=== PATIENT | female | born 1960 | race Caucasian/White ===

== ENCOUNTER 2025-01-22 15:57 | Inpatient (IN) ==
[2025-01-22 16:40] LABS: Basophils # (auto) 0.03 K/uL (0.00-0.20); Basophils % (auto) 0.4 %; Eosinophils # (auto) 0.27 K/uL (0.00-0.50); Hemoglobin 13.7 g/dl (12.0-16.0); Immature Granulocytes # (auto) 0.01 K/uL (0.01-0.20); Immature Granulocytes % (auto) 0.1 %; Lymphocytes # (auto) 1.86 K/uL (1.20-3.40); Lymphocytes % (auto) 27.8 %; Mean Corpuscular Hemoglobin 32.8 pg (25.0-34.0); Mean Corpuscular Hgb Conc 33.4 g/dL (32.0-36.0); Mean Corpuscular Volume 98.1 fL (80.0-100.0); Mean Platelet Volume 11.5 fL (9.4-12.4); Monocytes # (auto) 0.44 K/uL (0.11-0.59); Monocytes % (auto) 6.6 %; Neutrophils # (auto) 4.08 K/uL (1.40-6.50); Neutrophils % (auto) 61.1 %; Platelet Count 231 K/uL (130-400); RDW Coefficient of Variation 12.2 % (11.5-14.5); RDW Standard Deviation 44.7 fL (36.4-46.3); Red Blood Count 4.18 M/uL (4.20-5.40); White Blood Count 6.69 K/ul (4.8-10.8)
[2025-01-22 17:00] LABS: Albumin Globulin Ratio 1.8 (0.9-2); Albumin Level 4.7 gm/dl (3.4-5.0); BUN Creatinine Ratio 17.5 (10-20); Bilirubin,Total 0.3 mg/dl (0.2-1.0); Calcium 9.4 mg/dl (8.6-10.3); Creatinine Clr Calc Pharmacy 49.1 ml/min; Globulin 2.6 gm/dl (2.5-4.0); Magnesium 2.1 mg/dl (1.7-2.4); Potassium 4.3 mmol/L (3.5-5.1); Total Protein 7.3 gm/dl (6.0-8.3)
[2025-01-22] MEDS: SODIUM CHLORIDE 0.9% 1,000 ML IV ONE (17:00)
[2025-01-22 17:04] LABS: Prothrombin Time 10.7 Seconds (9.0-12.0)
[2025-01-22 17:05] LABS: Troponin I High Sensitivity 3.1 pg/ml (0-14)
[2025-01-22 17:15] LABS: Thyroid Stimulating Hormone 2.276 uIu/ml (0.300-4.500)
--- NOTE | 2025-01-22 17:15 | XRay Report ---
EXAM: Portable AP chest radiograph TECHNIQUE: AP portable radiograph of the chest was obtained. INDICATION: Shortness of breath Comparison: None FINDINGS: LINES and TUBES: There is a left-sided cardiac ICD with lead projecting over the right ventricle of the heart CARDIOVASCULAR: Cardiac silhouette is enlarged in size. LUNGS/PLEURA: Mild pulmonary vascular congestion. No focal consolidation identified. No significant pleural fluid. No discernible pneumothorax. OSSEOUS/OTHER: No displaced acute osseous process identified. ACDF hardware. Advanced osteoarthritis over the glenohumeral and the acromioclavicular joints. IMPRESSION: Mild congestive changes of the cardiovascular system. Electronically signed by Derian Rinaldi 01-22-2025 5:11 PM
--- NOTE | 2025-01-22 17:50 | Emergency Department Note ---
Impression & Plan Symptomatic bradycardia, Ventricular tachycardia, Lightheadedness ED Provider Note HISTORY OF PRESENT ILLNESS: Patient is a 64-year-old female presenting with lightheadedness and dizziness bradycardia. Patient reports that yesterday she had episodes of feeling lightheaded and dizzy like she was going to pass out. She states that today her symptoms recurred multiple times and she went to the nurses station at [facility] and was found to be bradycardic with a heart rate in the 30s. Patient reports that she has episode in which she feels like her vision gets very white and she is going to pass out. She states she has a history of bradycardia but is never been as low as the 30s. Denies any chest pain or shortness of breath. She reports she has a defibrillator in place because she had a history of Takotsubo's cardiomyopathy. She denies any nausea or vomiting. ROS: as above PHYSICAL EXAM: Constitutional: Patient appears in no acute distress. HENT: Head: Normocephalic and atraumatic. Eyes: EOMI, PERRL Mouth/Throat: Mucous membranes moist. Neck: Trachea midline. Neck supple. Cardiovascular: RRR, No murmurs, rubs or gallops. Intact distal pulses. Pulmonary/Chest: No respiratory distress. Breath sounds clear and equal bilaterally. No wheezes or rales. Abdominal: Abdomen soft, no tenderness, rebound or guarding. Musculoskeletal: No edema, tenderness or deformity noted. Skin: Warm and dry. No rash, erythema, pallor or cyanosis Psychiatric: Appropriate mood and affect for situation. Neurological: Alert and keenly responsive. CN II-XII grossly intact, moving all extremities equally and fully. MDM: - Vitals signs showed bradycardia - History obtained via patient. History as above. - Chronic conditions affecting care: Takotsubo's cardiomyopathy - Differential diagnoses include, but are not limited to: Electrolyte abnormality; dysrhythmia; ACS; CHF exacerbation; PE; aortic dissection - Order placed for continuous cardiac monitoring. At this time, monitor showed rate of 72 bpm with normal sinus rhythm, per my interpretation. - External medical records reviewed. - EKG image interpreted by myself showed normal sinus rhythm. Rate 69 bpm. QT 436. Noted to have significantly frequent PVCs and bigeminy. - Laboratory workup interpreted by myself showed normal WBC; normal PT/INR; stable electrolytes; normal troponin; elevated creatinine (Cr 1.54 - unknown baseline); normal TSH; normal lipase - CXR image reviewed by myself is negative for pneumonia, per my interpretation. Radiology notes "mild congestive changes." - Patient is noted to have frequent PVCs on both EKG and on the monitor. Patient while in the emergency department and being monitor on telemetry had multiple short runs of V. tach. She had an episode of V. tach while I was in the room with her and she became symptomatic stating that she felt lightheaded like she was going to pass out, similar to the symptoms she was having throughout the day today. Pads were placed on the patient and the crash cart was brought to her room. - Discussed case with [facility] city councilman on-call, Dr. Quiñonez, at 19:00. I sent him a picture of the patient's telemetry strip pictured below. He recommended giving an IV bolus of amiodarone for the patient's symptomatic V. tach. Also recommended initiation of amiodarone drip. - Amiodarone 150 mg IV bolus and drip ordered. Patient given 1L NS. - Discussion was had with binder caser about patient's case and need for admission - Hospitalist consulted for admission management. - [facility] I have personally spent 62 minutes of critical care time in the direct management of this patient. This includes bedside care, interpretation of diagnostic studies, and testing, discussion with consultants, patient, and family members, and other required patient management activities. This 62 minutes is in excess of all separately billable procedures. ASSESSMENT AND PLAN: Diagnosis: Symptomatic bradycardia; ventricular tachycardia; lightheadedness Plan: Admit Past Med/Surg History Problem List (Updated 01/22/25 @ 19:16 by Elaina Padron MD) Lightheadedness (Acute) Ventricular tachycardia (Acute) Symptomatic bradycardia (Acute) Social History Smoking Status: Current every day smoker Tobacco Type: Cigarettes Preferred Language: Spanish Feels Safe at Home: Yes Results & Data (ED) Vital Signs Vital Signs - 24 hr 01/22/25 16:03 01/22/25 16:19 01/22/25 16:19 Temperature 36.1 C L Temperature Source Temporal Artery Scan Pulse Rate 49 L 70 Pulse Rate [Apical] 70 Respiratory Rate 17 18 18 Respiratory Effort / Characteristics Non-Labored Spontaneous Non-Labored Spontaneous Respiratory Depth Normal Blood Pressure 119/68 Blood Pressure [Right Arm] 124/62 Blood Pressure Mean 85 Blood Pressure Mean [Right Arm] 82 Blood Pressure Position Sitting Blood Pressure Position [Right Arm] Lying Pulse Oximetry 98 96 96 Oxygen Delivery Method Room Air Room Air Room Air Sepsis Recent Fever Within 48 Hours No Sepsis New/Unexplained Change in Mental Status N/A Sepsis Action Taken by Nursing No Action Required 01/22/25 16:23 01/22/25 18:00 Temperature Temperature Source Pulse Rate 71 Pulse Rate [Apical] 72 Respiratory Rate 18 Respiratory Effort / Characteristics Non-Labored Spontaneous Respiratory Depth Blood Pressure Blood Pressure [Right Arm] 112/56 L Blood Pressure Mean Blood Pressure Mean [Right Arm] 74 Blood Pressure Position Blood Pressure Position [Right Arm] Lying Pulse Oximetry 97 Oxygen Delivery Method Room Air Sepsis Recent Fever Within 48 Hours Sepsis New/Unexplained Change in Mental Status Sepsis Action Taken by Nursing Laboratory Data 01/22/25 16:24 01/22/25 16:24 Lab Results 01/22/25 01/22/25 Range/Units 16:24 18:06 WBC 6.69 (4.8-10.8) K/ul RBC 4.18 L (4.20-5.40) M/uL Hgb 13.7 (12.0-16.0) g/dl Hct 41.0 (37.0-47.0) % MCV 98.1 (80.0-100.0) fL MCH 32.8 (25.0-34.0) pg MCHC 33.4 (32.0-36.0) g/dL RDW Std Deviation 44.7 (36.4-46.3) fL RDW Coeff of Obdulia 12.2 (11.5-14.5) % Plt Count 231 (130-400) K/uL MPV 11.5 (9.4-12.4) fL Immature Gran % (Auto) 0.1 % Neut % (Auto) 61.1 % Lymph % (Auto) 27.8 % [place] % (Auto) 6.6 % Eos % (Auto) 4.0 % Baso % (Auto) 0.4 % Neut # (Auto) 4.08 (1.40-6.50) K/uL Lymph # (Auto) 1.86 (1.20-3.40) K/uL [place] # (Auto) 0.44 (0.11-0.59) K/uL Eos # (Auto) 0.27 (0.00-0.50) K/uL Baso # (Auto) 0.03 (0.00-0.20) K/uL Immature Gran # (Auto) 0.01 (0.01-0.20) K/uL PT 10.7 (9.0-12.0) Seconds INR 1.0 (0.9-1.1) Sodium 136 (136-145) mmol/L Potassium 4.3 (3.5-5.1) mmol/L Chloride 101 (98-107) mmol/L Carbon Dioxide 30 (21-32) mmol/L Anion Gap 5 (3-11) BUN 27 H (6-23) mg/dl Creatinine 1.54 H (0.6-1.2) mg/dl Est Cr Clr Drug Dosing 49.1 ml/min eGFR 37.94 BUN/Creatinine Ratio 17.5 (10-20) Glucose 92 (70-99(Fasting)) mg/dl Calcium 9.4 (8.6-10.3) mg/dl Magnesium 2.1 (1.7-2.4) mg/dl Total Bilirubin 0.3 (0.2-1.0) mg/dl AST 34 (13-39) U/L ALT 26 (7-52) U/L Alkaline Phosphatase 75 (34-104) U/L Troponin I High Sens 3.1 (0-14) pg/ml Total Protein 7.3 (6.0-8.3) gm/dl Albumin 4.7 (3.4-5.0) gm/dl Globulin 2.6 (2.5-4.0) gm/dl Albumin/Globulin Ratio 1.8 (0.9-2) Lipase 44 (11-82) U/L TSH 2.276 (0.300-4.500) uIu/ml Urine Color Yellow Urine Appearance Clear (Clear) Urine pH 6.5 (4.5-7.5) Ur Specific [place] 1.013 (1.000-1.030) Urine Protein Negative (Negative) Urine Glucose (UA) 3+ H (Negative) Urine Ketones Negative (Negative) Urine Blood Negative (Negative) Urine Nitrite Negative (Negative) Urine Bilirubin Negative (Negative) Urine Urobilinogen Negative (Negative) Ur Leukocyte Esterase Negative (Negative) Administered Medications Discontinued Medications Sodium Chloride (Nss) 1,000 mls @ 999 mls/hr IV .Q1H1M ONE Stop: 01/22/25 18:20 Last Infusion: 01/22/25 18:01 Dose: Infused Documented By: Admin: 01/22/25 17:00 Dose: 999 mls/hr Documented By: AARTI Amiodarone HCl/Dextrose (Nexterone / D5w) 150 mg in 100 mls @ 600 mls/hr IV NOW STA Stop: 01/22/25 19:17 Last Admin: 01/22/25 19:15 Dose: 600 mls/hr Documented By: AARTI Co-signed By: [employer] Radiologist's Impression: Chest X-Ray 01/22/25 16:13 EXAM: Portable AP chest radiograph TECHNIQUE: AP portable radiograph of the chest was obtained. INDICATION: Shortness of breath Comparison: None FINDINGS: LINES and TUBES: There is a left-sided cardiac ICD with lead projecting over the right ventricle of the heart CARDIOVASCULAR: Cardiac silhouette is enlarged in size. LUNGS/PLEURA: Mild pulmonary vascular congestion. No focal consolidation identified. No significant pleural fluid. No discernible pneumothorax. OSSEOUS/OTHER: No displaced acute osseous process identified. ACDF hardware. Advanced osteoarthritis over the glenohumeral and the acromioclavicular joints. IMPRESSION: Mild congestive changes of the cardiovascular system. Electronically signed by Derian Rinaldi 01-22-2025 5:11 PM Discharge Plan Visit Data Chief Complaint: Abnormal Labs/Diagnostic Testing Stated Complaint: EKG ED Provider: Elaina Padron Discharge Problem: Symptomatic bradycardia, Ventricular tachycardia, Lightheadedness Forms Stand Alone Forms: [facility] Referrals Referrals: Sravanthi Beck PA-C [Primary Care Provider] -
[2025-01-22] MEDS ORDERED: 0.2 MICRON FILTER SET 1 EACH IV ONE ×2 (19:08→22:00)
[2025-01-22 19:09] LABS: Appearance Urine Clear (Clear); Bilirubin Urine Negative (Negative); Blood Urine Negative (Negative); Color Urine Yellow; Glucose Urine UA 3+ (Negative); Ketones Urine Negative (Negative); Leukocyte Esterase Urine Negative (Negative); Nitrite Urine Negative (Negative); Protein Urine Negative (Negative); Specific Gravity Urine 1.013 (1.000-1.030); Urobilinogen Urine Negative (Negative); pH Urine 6.5 (4.5-7.5)
[2025-01-22] MEDS: AMIODARONE / D5W 150 MG/100 ML BAG IV STA ×2 (19:15→23:13)
--- NOTE | 2025-01-22 19:25 | History & Physical Report ---
Date of Service January 22, 2025 Assessment & Plan (1) Ventricular tachycardia: (2) Symptomatic bradycardia: (3) Acute kidney injury: Plan Patient is a 64-year-old female with past medical history of Takotsubo cardiomyopathy with a defibrillator. She presented to the ER from [facility] for bradycardia (HR in 30s) and was found to have multiple episodes of V. tach in which patient is symptomatic with lightheadedness dizziness and feels presyncopal. She is being admitted to the PCU on amiodarone drip. #Ventricular tachycardia hx takotsubo cardiomyopathy with defibrillator in place - baseline BP in 40s CXR shows mild congestive changes electrolytes stable, TSH WNL, troponin 3.1 given 150 mg IV amiodarone load in ED continue amiodarone drip - will order additional bolus throughout the night if breakthrough v tach echocardiogram ordered cardiology consulted continuous telemetry monitoring hold carvedilol and metoprolol to allow for better parameters with drip above #CHITO questionable as baseline function unknown, pt denies hx of CKD patient stated history of renal lesion that she has yet to arrange follow up for as has been in detox facility Cr 1.54, BUN 27 UA negative hold Lasix, spironolactone, Farxiga, Entresto given 1L NSS bolus in ED, continue IVF resuscitation with LR at 80ml/hr #recent illness patient stated sore throat x 1 week treated with azithromycin at facility CXR shows congestive changes covid/flu/rsv test ordered #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 HLD - continue statin, tricor, ASA, and cilostazol chronic pain - continue gabapentin anxiety - hydroxyzine prn GERD - continue PPI tobacco use - continue varenicline if able to dose with pharmacy [facility] - patient does not use cpap, set up for sleep study in out pt setting COPD - patient notes hx of, unsure of inhalers and no history of in our records VTE ppx: SCDs Diet: Heart healthy Dispo: PCU on amiodarone drip Most recent office visit with Dr. Wilder faxed over from 09/03/2024. Appears patient was previously transition from Coreg to Toprol XL 12.5 Mg daily at this time and started Pletal 50 Mg twice daily. Patient has a history of arthritis, CAD, hypertension, hyperlipidemia, cardiomyopathy, MR, PAD, chronic systolic heart failure, carotid stenosis. Admission and Anticipated Discharge Date Admission Date: 01/22/25 History of Present Illness Chief Complaint: Abnormal labs Primary Care Provider: Sravanthi Beck PA-C Patient is a 64-year-old female with past medical history of Takotsubo cardiomyopathy with a defibrillator. She presented to the ER from [facility] for bradycardia and was found to have multiple episodes of V. tach in which patient is symptomatic with lightheadedness dizziness and feels presyncopal. She is being admitted to the PCU on amiodarone drip. Patient seen bedside. She stated she is at [facility] for alcohol detoxification and pain medication detoxification. She has been there for approximately 30 days and has been sober. She also has decreased her nicotine use to 2 cigarettes/day. She stated she is was a chronic alcohol user to help with her chronic pain which is now resolved with stopping both drinking and pain medication. She started drinking alcohol after her first her child . She is mentally doing a lot better and plans to return home after this admission. Patient stated that yesterday she became lightheaded while walking uphill [place] took a nap and it went away. This morning she also had lightheadedness, nausea, and dizziness with walking along with leg weakness. Nursing found her heart rate to be in the 30s. She has a history of Takotsubo cardiomyopathy and has a defibrillator, she stated her baseline heart rate is usually in the 40s. She also had a headache in which she thought was a migraine so she took a nap. Upon waking up her heart rate was still in the 30s. They spoke with her advertising teacher who recommended she come to the ED. In the ED she had multiple runs of V. tach associated with lightheadedness and dizziness. She was given amiodarone bolus and started on amiodarone drip after her ER provider spoke with on-call advertising teacher, Dr. Quiñonez. At bedside, patient is feeling much better, transcutaneous pads in place. HR trending in 70s-80s however frequent PVCs. She denies any current dizziness or lightheadedness. Denies any chest pain, worsening shortness of breath (has dyspnea at baseline), recent vomiting or diarrhea. Patient stated she did have flulike symptoms last week which consisted of a sore throat, they prescribed her a Z-Leonardo which resolved her symptoms. As we have no medical records, patient denies past history of CKD, DM, previous VTE, current cancer. She stated she does have a history of COPD and uses a daily inhaler and use albuterol as needed. She also has a history of CHF and stated her ejection fraction has improved from 20% to 50% after starting Entresto and taking Lasix. secretary of police to try to obtain records from patient's advertising teacher, Dr. Wilder. As admission is Saturday evening, anticipate records to come in Saturday morning. Allergies Allergy/AdvReac Type Severity Reaction Status Date / Time diphenhydramine AdvReac Confusion Unverified 01/22/25 20:18 [From Benadryl Allergy] Home Medications Medication Instructions Recorded Confirmed Type aspirin 81 mg tablet,delayed 81 mg PO DAILY 01/22/25 01/22/25 History release atorvastatin 20 mg tablet 20 mg PO DAILY 01/22/25 01/22/25 History carvedilol 6.25 mg tablet 6.25 mg PO 2XD 01/22/25 01/22/25 History cilostazol 50 mg tablet 50 mg PO 2XD 01/22/25 01/22/25 History cyclobenzaprine 10 mg tablet 10 mg PO DAILY PRN Muscle Spasm 01/22/25 01/22/25 History dapagliflozin propanediol 10 mg 10 mg PO DAILY 01/22/25 01/22/25 History tablet (Farxiga) duloxetine 30 mg capsule,delayed 30 mg PO DAILY 01/22/25 01/22/25 History release duloxetine 60 mg capsule,delayed 60 mg PO DAILY 01/22/25 01/22/25 History release famotidine 20 mg tablet 20 mg PO 2XD 01/22/25 01/22/25 History fenofibrate nanocrystallized 145 145 mg PO DAILY 01/22/25 01/22/25 History mg tablet folic acid 1 mg tablet 1 mg PO DAILY 01/22/25 01/22/25 History gabapentin 300 mg capsule 300 mg PO 3XD 01/22/25 01/22/25 History hydroxyzine pamoate 25 mg capsule 25 mg PO 3XD PRN Anxiety 01/22/25 01/22/25 History metoprolol succinate 25 mg 12.5 mg PO DAILY 01/22/25 01/22/25 History tablet,extended release 24 hr pantoprazole 40 mg tablet,delayed 40 mg PO DAILY 01/22/25 01/22/25 History release sacubitril 49 mg-valsartan 51 mg 1 tab PO 2XD 01/22/25 01/22/25 History tablet (Entresto) spironolactone 25 mg tablet 25 mg PO DAILY 01/22/25 01/22/25 History trazodone 50 mg tablet 50 mg PO DAILY 01/22/25 01/22/25 History varenicline tartrate 0.5 mg (11)-1 1 ea PO DAILY 01/22/25 01/22/25 History mg (42) tablets in a dose pack Past Med/Surg History Problem List (Updated 01/22/25 @ 20:38 by Clauida Hermosillo PA-C) Acute kidney injury Lightheadedness (Acute) Ventricular tachycardia (Acute) Symptomatic bradycardia (Acute) Social History Smoking Status: Former smoker Tobacco Type: Cigarettes Hx Alcohol Use: Yes (hx but recently 30 days sober) Alcohol type: beer Hx Substance Use: Yes Substance Use Type Other:: sober 30 days Preferred Language: Uzbek Communication Ability: Effective Beliefs That Will Affect Care: None Current Living Situation: Spouse Feels Safe at Home: Yes Safety Concerns: Feels Safe At This Time Assistive Devices: Cane, Glasses and Walker Review of Systems Review of Systems: see HPI Physical Exam Physical Exam: The patient is awake, alert and oriented 3, well developed and well nourished, normocephalic and atraumatic, in no acute distress. Non-toxic appearing. HEENT- EOMI, mucous membranes moist. Hearing grossly intact. Heart-normal S1 and S2. No murmurs, rubs or gallops. Transcutaneous pads in place. Lungs-clear bilaterally, no respiratory distress, no accessory muscle use. Abdomen-normal bowel sounds and soft. No ascites noted. Non-tender. Extremities- no clubbing, cyanosis, or edema. Rheumatologic-normal range of motion. Psychiatric-normal affect. Results & Data Results & Data Vital Signs (Past 12 Hours) Vital Signs Temp Pulse Pulse Resp BP BP Pulse Ox 01/22/25 18:00 72 18 112/56 L 97 01/22/25 16:23 71 01/22/25 16:19 70 18 96 01/22/25 16:19 70 18 124/62 96 01/22/25 16:03 36.1 C L 49 L 17 119/68 98 O2 Del Method 01/22/25 18:00 Room Air 01/22/25 16:23 01/22/25 16:19 Room Air 01/22/25 16:19 Room Air 01/22/25 16:03 Room Air Laboratory Results Reviewed CBC, PT/INR, CMP, Pro-Marcial, UA, troponin, mag, tsh Diagnostic Findings reviewed cxr Medications Administered ed - amiodarone 150mg IV, started on amiodarone drip, 1L NSS bolus ECG Additional Comments: Sinus rhythm with first-degree AV block, frequent PVCs rate 69 QTc 467 Code Status & VTE Plan Code Status full code VTE Prophylaxis Plan VTE Prophylaxis will be ordered: Yes Supervising Physician Co-Signing Physician Notes Attending addendum: I have physically seen this patient, have supervised the NICKY's activities, and agree with the H&P unless as otherwise noted. Assessment and Plan: The patient is a 64-year-old female with past medical history including Takotsubo's cardiomyopathy, status post defibrillator placement. He presently is at [facility] undergoing rehab. Patient was noted to be bradycardic with heart rate in the 30s, and also has had episodes of ventricular tachycardia. In the emergency department, due to associated symptomatology of lightheadedness, dizziness and presyncope, she was started on amiodarone bolus and drip per protocol. She is referred for evaluation to and the hospitalist service for further treatment and for cardiology consultation. #Ventricular tachycardia- Continue amiodarone bolus/drip, did require additional 150 mg IV bolus, with maintained sinus tachycardia throughout the rest of the evening History of bradycardia, tachybradycardia syndrome Continue following full telemetry Complete echocardiogram in the a.m. Holding carvedilol and metoprolol at this time Renal insufficiency- Creatinine 1.5 for admission, with unknown baseline Holding her current regimen of Lasix, spironolactone, Farxiga and Entresto due to renal function and adequate blood pressure control at this time Repeat laboratories in a.m. Chronic alcohol use history- Presently a detox facility, reportedly 30 days sober Thiamine and folate to be continued Chronic stable conditions: Continue as per noted PG Care Time/CCT Total # of Minutes Spent Total Time Spent with Patient: Total time spent is greater than 50% in coordination of care (as documented) at patient's floor/unit and/or counseling patient: Coding Level of Care Code 21601 INT INP/OBS CARE 3/75MIN Diagnoses Ventricular tachycardia I47.20 Symptomatic bradycardia R00.1 Acute kidney injury N17.9
--- NOTE | 2025-01-22 19:25 | Electrocardiogram Report ---
Test Reason : Blood Pressure : */* mmHG Vent. Rate : 69 BPM Atrial Rate : 69 BPM P-R Int : 216 ms QRS Dur : 104 ms QT Int : 436 ms P-R-T Axes : 65 100 -79 degrees QTcB Int : 467 ms Sinus rhythm with 1st degree A-V block with frequent Premature ventricular complexes in a pattern of bigeminy Rightward axis Abnormal ECG No previous ECGs available Confirmed by Daniel Fierro ([id number]) on 01/22/2025 7:25:33 PM Referred By: Confirmed By: Daniel Fierro
[2025-01-22] MEDS ORDERED: 0.2 MICRON FILTER SET 1 EACH IV STA (19:32)
[2025-01-22] MEDS: STAT IV Infusion **Titration per Protocol STA (19:48)
[2025-01-22] MEDS: AMIODARONE IV BOLUS & DRIP IV STA (19:48)
[2025-01-22] MEDS: AMIODARONE / D5W 360 MG/200 ML BAG IV ONE (19:51)
[2025-01-22 21:19] LABS: Influenza A virus by PCR Negative (Neg); Influenza B virus by PCR Negative (Neg); RSV by PCR Negative (Neg); SARS CoV2 RNA(COVID-19) Ceph NEGATIVE (Negative)
[2025-01-22] MEDS ORDERED: hydrOXYzine HCl 25 MG TAB PO PRN (22:27)
[2025-01-22] MEDS ORDERED: DOCUSATE SODIUM 100 MG CAP PO PRN (22:27)
[2025-01-22] MEDS ORDERED: ONDANSETRON INJ 2 MG/ML 2 ML VIAL IV PRN (22:27)
[2025-01-22] MEDS: LACTATED RINGER'S 1,000 ML IV SCH (22:46)
[2025-01-22] MEDS: HEPARIN 25000 UNIT/500 ML D5W 25,000 UNITS/500 ML BAG IV SCH (22:50)
[2025-01-22] MEDS: Heparin IV Adult Wt-Based Standard *NO* INITIAL Bolus Protocol IV STA (22:54)
[2025-01-22] MEDS: GABAPENTIN 300 MG CAP PO SCH (23:34)
[2025-01-22] MEDS: traZODone HCL 50 MG TAB PO SCH (23:34)
[2025-01-22] MEDS: cilostazoL 100 MG TAB PO SCH (23:35)
[2025-01-22] MEDS: FAMOTIDINE 20 MG TAB PO SCH (23:38)
[2025-01-23] MEDS: AMIODARONE / D5W 360 MG/200 ML BAG IV SCH (01:54)
[2025-01-23 06:23] LABS: Basophils # (auto) 0.02 K/uL (0.00-0.20); Basophils % (auto) 0.3 %; Eosinophils % (auto) 6.1 %; Hematocrit (blood only) 39.4 % (37.0-47.0); Hemoglobin 13.1 g/dl (12.0-16.0); Immature Granulocytes # (auto) 0.01 K/uL (0.01-0.20); Immature Granulocytes % (auto) 0.2 %; Lymphocytes # (auto) 2.11 K/uL (1.20-3.40); Mean Corpuscular Hemoglobin 32.8 pg (25.0-34.0); Mean Corpuscular Hgb Conc 33.2 g/dL (32.0-36.0); Mean Corpuscular Volume 98.5 fL (80.0-100.0); Mean Platelet Volume 11.7 fL (9.4-12.4); Monocytes % (auto) 6.1 %; Neutrophils # (auto) 3.66 K/uL (1.40-6.50); Neutrophils % (auto) 55.3 %; Platelet Count 195 K/uL (130-400); RDW Coefficient of Variation 12.4 % (11.5-14.5)
[2025-01-23 06:48] LABS: Albumin Globulin Ratio 1.9 (0.9-2); Albumin Level 3.9 gm/dl (3.4-5.0); Bilirubin,Total 0.3 mg/dl (0.2-1.0); Creatinine Clr Calc Pharmacy 71.9 ml/min; Globulin 2.1 gm/dl (2.5-4.0); Magnesium 2.1 mg/dl (1.7-2.4); Potassium 3.9 mmol/L (3.5-5.1)
[2025-01-23 06:53] LABS: Troponin I High Sensitivity 3.2 pg/ml (0-14)
[2025-01-23 07:14] LABS: ANTI-Xa, UFH(UnfractionatedHep 0.31 IU/ml (0.3-0.7)
[2025-01-23] MEDS: DULoxetine HCL 30 MG CAP PO SCH (08:04)
[2025-01-23] MEDS: ASPIRIN 81 MG ECTAB PO SCH (08:05)
[2025-01-23] MEDS: PANTOprazole 40 MG TAB PO SCH (08:06)
[2025-01-23] MEDS: ATORVASTATIN 20 MG TAB PO SCH (08:07)
[2025-01-23] MEDS: FENOFIBRATE NANOCRYSTALLIZED 145 MG TABLET PO SCH (08:08)
[2025-01-23] MEDS ORDERED: traZODone HCL 50 MG TAB PO SCH (09:00)
--- NOTE | 2025-01-23 09:03 | Hospitalist Progress Note ---
Date of Service January 23, 2025 Assessment & Plan (1) Ventricular tachycardia: Plan: continue amiodarone drip echocardiogram ordered cardiology consulted continuous telemetry monitoring (2) Symptomatic bradycardia: Plan: hold carvedilol and metoprolol to allow for better parameters with drip (3) Acute kidney injury: Plan: questionable as baseline function unknown, pt denies hx of CKD patient stated history of renal lesion that she has yet to arrange follow up for as has been in detox facility Cr 1.54, BUN 27 UA negative hold Lasix, spironolactone, Farxiga, Entresto given 1L NSS bolus in ED, continue IVF resuscitation with LR at 80ml/hr -cr now 1.05 this am Plan Patient is a 64-year-old female with past medical history of Takotsubo cardiomyopathy with a defibrillator. She presented to the ER from [facility] for bradycardia (HR in 30s) and was found to have multiple episodes of V. tach in which patient is symptomatic with lightheadedness dizziness and feels presyncopal. She is being admitted to the PCU on amiodarone drip. Chronic stable diagnoses: CHF - holding Lasix, spironolactone, Entresto as above - patient reports EF of 50%, echocardiogram in a.m. HLD - continue statin, tricor, ASA, and cilostazol chronic pain - continue gabapentin anxiety - hydroxyzine prn GERD - continue PPI tobacco use - continue varenicline if able to dose with pharmacy [facility] - patient does not use cpap, set up for sleep study in out pt setting COPD - patient notes hx of, unsure of inhalers and no history of in our records VTE ppx: SCDs Diet: Heart healthy Dispo: PCU on amiodarone drip Most recent office visit with Dr. Wilder faxed over from 09/03/2024. Appears patient was previously transition from Coreg to Toprol XL 12.5 Mg daily at this time and started Pletal 50 Mg twice daily. Patient has a history of arthritis, CAD, hypertension, hyperlipidemia, cardiomyopathy, MR, PAD, chronic systolic heart failure, carotid stenosis. Admission and Anticipated Discharge Date Admission Date: January 22, 2025 Subjective No events overnight. Pt resting comfortably in bed. No chest pain or palpitations overnight. Review of Systems Review of Systems: CONST: Negative for fever, body aches and chills. HENT: Negative for neck pain/stiffness, headache, congestion, sore throat, swel ling. EYES: Negative for discharge/pain or vision changes. RESP: Negative for cough/hemoptysis and shortness of breath. CV: Negative chest pain, difficulty breathing, palpitations. ABD: Negative pain, nausea, vomiting. : Negative increase frequency, dysuria, blood in urine or stool. MUSC: Negative for muscle aches, edema. SKIN: Negative rash, lesions/sores. NEURO: Negative headache, dizziness, weakness. Physical Exam Physical Exam: GENERAL APPEARANCE NAD, activity normal for age, well developed/ well nourished, no cyanosis, pallor, or diaphoresis. EYES lids/conjunctiva normal. EARS/NOSE/THROAT Mucous membranes moist, nares normal, lips/teeth normal uvula midline without oral pharyngeal erythema, exudate or swelling TMs normal bilaterally. No lymphangitis/lymphedema. HEAD/NECK normocephalic atraumatic, no facial trauma, neck is supple. RESPIRATORY respiratory effort normal, speaks in full sentences, no tripod position, no accessory muscle use. Lungs clear to auscultation without rhonchi, wheezes, rales CARDIAC Regular rate and rhythm, no edema. ABDOMINAL Soft, ND/NT. No evidence of fluid wave. No pulsatile masses on exam, rebound tenderness, Deng sign or pain over Mcburney's point. MUSCLES/EXTREMITIES No abnormal range of motion, no swelling. SKIN Warm, pink and dry. No rashes, dermatoses, petechiae or lesions. NEUROLOGICAL Speech is clear and appropriate. Normal level of consciousness. Gait and coordination are normal. 5/5 strength in all extremities. PSYCH Normal mood and affect. Judgement/competence is appropriate Results & Data Results & Data Vital Signs (Past 12 Hours) Vital Signs Temp Pulse Pulse Resp BP BP Pulse Ox 01/23/25 08:03 36.6 C 76 14 110/51 L 94 01/23/25 04:12 36.5 C 76 17 107/57 L 96 01/22/25 22:27 01/22/25 22:15 36.5 C 68 18 133/56 L 97 01/22/25 21:51 78 01/22/25 21:47 65 18 132/66 94 Pulse Ox O2 Del Method O2 Del Method 01/23/25 08:03 Room Air 01/23/25 04:12 Room Air 01/22/25 22:27 97 Room Air 01/22/25 22:15 Room Air 01/22/25 21:51 01/22/25 21:47 Room Air PG Care Time/CCT Total # of Minutes Spent Total Time Spent with Patient: Total time spent is greater than 50% in coordination of care (as documented) at patient's floor/unit and/or counseling patient: Coding Level of Care Code 56774 SUB INP/OBS CARE 2/35MIN Diagnoses Ventricular tachycardia I47.20 Symptomatic bradycardia R00.1 Acute kidney injury N17.9
--- NOTE | 2025-01-23 09:47 | XCELERA ---
[id number]
--- NOTE | 2025-01-23 12:42 | Cardiology Consultation ---
Date of Consultation January 23, 2025 Assessment & Plan (1) Ventricular tachycardia: -Uncertain etiology. -Normal QTc interval on presentation. -Normal left ventricular systolic function on echocardiogram. -Has responded well to intravenous amiodarone. -Would continue intravenous amiodarone for another 24 hours, then convert to 200 Mg p.o. twice daily. -She will need to follow-up with her hatch tender in [place], [place]. -Anticipate hospital discharge tomorrow. (2) Takotsubo cardiomyopathy: -Normal ejection fraction on current echocardiogram. (3) ICD (implantable cardioverter-defibrillator), single, in situ: -[employer] device. History of Present Illness Attending Physician: Apollo Roberts MD History of Present Illness Mrs. Mcmahan is a 64-year-old female admitted yesterday with symptomatic, nonsustained ventricular tachycardia. This consultation was ordered to assist in her cardiac management. Of note, the patient typically follows with Dr. Wilder, a hatch tender in [place], [place]. The patient was in her usual state of health until the day of presentation. She began to experience intermittent episodes of lightheadedness, dizziness, and leg fatigue. She presented to the nurses station (currently a resident at [facility]) and was noted to have a heart rate in the 30s. Therefore, she was sent to the emergency room for further care. On arrival here, the patient was noted to be in ventricular bigeminy. She then had several episodes of symptomatic nonsustained ventricular tachycardia characterized by presyncope. I was contacted by telephone and we decided to start the patient on intravenous amiodarone. Fortunately, this has greatly reduced the ventricular tachycardia. The patient does carry a history of the Takotsubo cardiomyopathy that occurred after her foster child . She had an implantable defibrillator ([employer]) placed and was started on appropriate medical therapy. That was in the year 2020. The patient explains that her left ventricular ejection fraction improved from 20% up to 50% on her most recent echocardiogram. Currently, patient is resting comfortably in bed and without complaints. Allergies Allergy/AdvReac Type Severity Reaction Status Date / Time diphenhydramine AdvReac Confusion Unverified 01/22/25 20:18 [From Benadryl Allergy] Home Medications Medication Instructions Recorded Confirmed Type aspirin 81 mg tablet,delayed 81 mg PO DAILY 01/22/25 01/22/25 History release atorvastatin 20 mg tablet 20 mg PO DAILY 01/22/25 01/22/25 History carvedilol 6.25 mg tablet 6.25 mg PO 2XD 01/22/25 01/22/25 History cilostazol 50 mg tablet 50 mg PO 2XD 01/22/25 01/22/25 History cyclobenzaprine 10 mg tablet 10 mg PO DAILY PRN Muscle Spasm 01/22/25 01/22/25 History dapagliflozin propanediol 10 mg 10 mg PO DAILY 01/22/25 01/22/25 History tablet (Farxiga) duloxetine 30 mg capsule,delayed 30 mg PO DAILY 01/22/25 01/22/25 History release duloxetine 60 mg capsule,delayed 60 mg PO DAILY 01/22/25 01/22/25 History release famotidine 20 mg tablet 20 mg PO 2XD 01/22/25 01/22/25 History fenofibrate nanocrystallized 145 145 mg PO DAILY 01/22/25 01/22/25 History mg tablet folic acid 1 mg tablet 1 mg PO DAILY 01/22/25 01/22/25 History gabapentin 300 mg capsule 300 mg PO 3XD 01/22/25 01/22/25 History hydroxyzine pamoate 25 mg capsule 25 mg PO 3XD PRN Anxiety 01/22/25 01/22/25 History metoprolol succinate 25 mg 12.5 mg PO DAILY 01/22/25 01/22/25 History tablet,extended release 24 hr pantoprazole 40 mg tablet,delayed 40 mg PO DAILY 01/22/25 01/22/25 History release sacubitril 49 mg-valsartan 51 mg 1 tab PO 2XD 01/22/25 01/22/25 History tablet (Entresto) spironolactone 25 mg tablet 25 mg PO DAILY 01/22/25 01/22/25 History trazodone 50 mg tablet 50 mg PO DAILY 01/22/25 01/22/25 History varenicline tartrate 0.5 mg (11)-1 1 ea PO DAILY 01/22/25 01/22/25 History mg (42) tablets in a dose pack Patient History Social History Smoking Status: Former smoker Tobacco Type: Cigarettes 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 HEENT exam is negative. Neck is supple with full carotid upstrokes. There are no carotid bruits. Jugular venous pressure is flat at 90 degrees. There is no thyromegaly. Cardiovascular exam reveals a regular rhythm with distant heart sounds. No obvious murmurs. Lungs are clear without rales, rhonchi, or wheezes. Chest reveals a palpable device in the left subclavicular region. Abdomen is obese without bruits. Extremities reveal intact radial artery pulses bilaterally. There is no peripheral edema. Results & Data Vital Signs (Past 12 Hours) Vital Signs Temp Pulse Pulse Resp BP Pulse Ox O2 Del Method 01/23/25 10:06 36.5 C 77 14 123/71 98 Room Air 01/23/25 09:59 Room Air 01/23/25 08:03 36.6 C 76 14 110/51 L 94 Room Air 01/23/25 07:00 76 01/23/25 04:12 36.5 C 76 17 107/57 L 96 Room Air Laboratory Results CBC and electrolytes are unremarkable. Initial high-sensitivity troponin was 3.1 with a follow-up value of 3.2. Initial EKG notes sinus rhythm with PVCs and a pattern of bigeminy. Echocardiogram notes normal left ventricular systolic fu nction with an ejection fraction of 50 to 55%. There were no wall motion abnormalities. No valvular pathology. PG Care Time/CCT Total # of Minutes Spent Total Time Spent with Patient: Total time spent is greater than 50% in coordination of care (as documented) at patient's floor/unit and/or counseling patient: Coding Level of Care Code 56784 IN/OBS CONSULT LVL 4,60M Diagnoses Ventricular tachycardia I47.20 Takotsubo cardiomyopathy I51.81 ICD (implantable cardioverter-defibrillator), single, in situ Z95.810
[2025-01-23] MEDS: NALTREXONE HCL 50 MG TAB PO SCH (20:06)
[2025-01-24 04:17] VITALS: RESP 18
[2025-01-24 07:06] LABS: ANTI-Xa, UFH(UnfractionatedHep 0.28 IU/ml (0.3-0.7)
[2025-01-24 07:57] VITALS: BP 148/90; PULSE 55; TEMP 97.9; O2SAT 97
[2025-01-24] MEDS: ACETAMINOPHEN 325 MG TAB PO PRN (09:11)
--- NOTE | 2025-01-24 10:30 | Discharge Summary ---
Discharge Summary Date of Service January 24, 2025 Principal Dx & Hospital Course #1 = Principal Diagnosis (1) Ventricular tachycardia: continue amiodarone drip echocardiogram ordered cardiology consulted continuous telemetry monitoring Pt without further episodes, cardiology recommending d/c with po amiodarone. (2) Symptomatic bradycardia: hold carvedilol and metoprolol to allow for better parameters with drip (3) Acute kidney injury: questionable as baseline function unknown, pt denies hx of CKD patient stated history of renal lesion that she has yet to arrange follow up for as has been in detox facility Cr 1.54, BUN 27 UA negative hold Lasix, spironolactone, Farxiga, Entresto given 1L NSS bolus in ED, continue IVF resuscitation with LR at 80ml/hr -cr now 1.05 this am Plan Patient is a 64-year-old female with past medical history of Takotsubo cardiomyopathy with a defibrillator. She presented to the ER from [facility] for bradycardia (HR in 30s) and was found to have multiple episodes of V. tach in which patient is symptomatic with lightheadedness dizziness and feels presyncopal. She is being admitted to the PCU on amiodarone drip. Chronic stable diagnoses: CHF - holding Lasix, spironolactone, Entresto as above - patient reports EF of 50%, echocardiogram in a.m. HLD - continue statin, tricor, ASA, and cilostazol chronic pain - continue gabapentin anxiety - hydroxyzine prn GERD - continue PPI tobacco use - continue varenicline if able to dose with pharmacy [facility] - patient does not use cpap, set up for sleep study in out pt setting COPD - patient notes hx of, unsure of inhalers and no history of in our records VTE ppx: SCDs Diet: Heart healthy Dispo: PCU on amiodarone drip Most recent office visit with Dr. Wilder faxed over from 09/03/2024. Appears patient was previously transition from Coreg to Toprol XL 12.5 Mg daily at this time and started Pletal 50 Mg twice daily. Patient has a history of arthritis, CAD, hypertension, hyperlipidemia, cardiomyopathy, MR, PAD, chronic systolic heart failure, carotid stenosis. Admission HPI Per Admitting Provider Patient is a 64-year-old female with past medical history of Takotsubo cardiomyopathy with a defibrillator. She presented to the ER from [facility] for bradycardia and was found to have multiple episodes of V. tach in which patient is symptomatic with lightheadedness dizziness and feels presyncopal. She is being admitted to the PCU on amiodarone drip. Patient seen bedside. She stated she is at [facility] for alcohol detoxification and pain medication detoxification. She has been there for approximately 30 days and has been sober. She also has decreased her nicotine use to 2 cigarettes/day. She stated she is was a chronic alcohol user to help with her chronic pain which is now resolved with stopping both drinking and pain medication. She started drinking alcohol after her first her child . She is mentally doing a lot better and plans to return home after this admission. Patient stated that yesterday she became lightheaded while walking uphill however took a nap and it went away. This morning she also had lightheadedness, nausea, and dizziness with walking along with leg weakness. Nursing found her heart rate to be in the 30s. She has a history of Takotsubo cardiomyopathy and has a defibrillator, she stated her baseline heart rate is usually in the 40s. She also had a headache in which she thought was a migraine so she took a nap. Upon waking up her heart rate was still in the 30s. They spoke with her obstetrical tech who recommended she come to the ED. In the ED she had multiple runs of V. tach associated with lightheadedness and dizziness. She was given amiodarone bolus and started on amiodarone drip after her ER provider spoke with on-call obstetrical tech, Dr. Quiñonez. At bedside, patient is feeling much better, transcutaneous pads in place. HR trending in 70s-80s however frequent PVCs. She denies any current dizziness or lightheadedness. Denies any chest pain, worsening shortness of breath (has dyspnea at baseline), recent vomiting or diarrhea. Patient stated she did have flulike symptoms last week which consisted of a sore throat, they prescribed her a Z-Leonardo which resolved her symptoms. As we have no medical records, patient denies past history of CKD, DM, previous VTE, current cancer. She stated she does have a history of COPD and uses a daily inhaler and use albuterol as needed. She also has a history of CHF and stated her ejection fraction has improved from 20% to 50% after starting Entresto and taking Lasix. pathology secretary to try to obtain records from patient's obstetrical tech, Dr. Wilder. As admission is Saturday evening, anticipate records to come in Saturday morning. Discharge Exam GENERAL APPEARANCE NAD, activity normal for age, well developed/ well nourished, no cyanosis, pallor, or diaphoresis. EYES lids/conjunctiva normal. EARS/NOSE/THROAT Mucous membranes moist, nares normal, lips/teeth normal uvula midline without oral pharyngeal erythema, exudate or swelling TMs normal bilaterally. No lymphangitis/lymphedema. HEAD/NECK normocephalic atraumatic, no facial trauma, neck is supple. RESPIRATORY respiratory effort normal, speaks in full sentences, no tripod position, no accessory muscle use. Lungs clear to auscultation without rhonchi, wheezes, rales CARDIAC Regular rate and rhythm, no edema. ABDOMINAL Soft, ND/NT. No evidence of fluid wave. No pulsatile masses on exam, rebound tenderness, Deng sign or pain over Mcburney's point. MUSCLES/EXTREMITIES No abnormal range of motion, no swelling. SKIN Warm, pink and dry. No rashes, dermatoses, petechiae or lesions. NEUROLOGICAL Speech is clear and appropriate. Normal level of consciousness. Gait and coordination are normal. 5/5 strength in all extremities. PSYCH Normal mood and affect. Judgement/competence is appropriate Discharge Plan Discharge Items Patient Disposition: Home - Self-Care Reason For Visit: VTACH Discharge Diagnosis: Ventricular tachycardia Activity: Resume your previous activity Non-emergency contact: Primary Care Provider Call non-emergency contact if: you have any medication questions Follow-up/Referrals: Sravanthi Beck PA-C [Primary Care Provider] - Diet: Regular Addtl Attending Provider Instructions: Follow with PMD in 2 weeks Pending Studies at Discharge: No Stand-Alone Forms: My [employer], Smoking Cessation Medications and DC Order Prescriptions: New amiodarone 200 mg tablet 200 mg PO BID Qty: 60 0RF Continued varenicline tartrate 0.5 mg (11)- 1 mg (42) tablets,dose pack 1 ea PO DAILY carvedilol 6.25 mg tablet 6.25 mg PO 2XD atorvastatin 20 mg tablet 20 mg PO DAILY cilostazol 50 mg tablet 50 mg PO 2XD aspirin 81 mg tablet,delayed release (DR/EC) 81 mg PO DAILY cyclobenzaprine 10 mg tablet 10 mg PO DAILY PRN (Reason: Muscle Spasm) trazodone 50 mg tablet 50 mg PO DAILY spironolactone 25 mg tablet 25 mg PO DAILY famotidine 20 mg tablet 20 mg PO 2XD pantoprazole 40 mg tablet,delayed release (DR/EC) 40 mg PO DAILY gabapentin 300 mg capsule 300 mg PO 3XD folic acid 1 mg tablet 1 mg PO DAILY metoprolol succinate 25 mg tablet extended release 24 hr 12.5 mg PO DAILY hydroxyzine pamoate 25 mg capsule 25 mg PO 3XD PRN (Reason: Anxiety) duloxetine 30 mg capsule,delayed release(DR/EC) 30 mg PO DAILY Rx Instructions: Patient takes 60mg along with 30mg to equal 90mg total duloxetine 60 mg capsule,delayed release(DR/EC) 60 mg PO DAILY Rx Instructions: Patient takes 30mg along with 60mg to equal 90mg total fenofibrate nanocrystallized 145 mg tablet 145 mg PO DAILY dapagliflozin propanediol [Farxiga] 10 mg tablet 10 mg PO DAILY Entresto 49-51 mg tablet 1 tab PO 2XD Discharge Orders: Discharge Order (Routine); Ordered 01/24/25 Ordered By: Apollo Roberts Admission Data Admit Date/Time: 01/22/25 20:18 Attending Provider: Apollo Roberts Admit Provider: Madhu Cadena Primary Care Provider: Sravanthi Beck Other Providers: Apollo Wilder; Madhu Cadena; Edwin Quiñonez Hospital Stay Data Consultations 01/22/25 19:34 ED Decision to Admit Stat 01/22/25 22:27 Consult Cardiology Routine Pending Results Patient Have Any Pending Studies at Discharge: No Discharge Instructions Given to Patient (Per Discharging Provider) Follow with PMD in 2 weeks Total Time Total Time Spent Total Time Spent (In Minutes): 50 Coding Level of Care Code 89671 INP/OBS DISCH >30 MIN Diagnoses Ventricular tachycardia I47.20 Symptomatic bradycardia R00.1 Acute kidney injury N17.9
--- NOTE | 2025-01-24 11:22 | Cardiology Progress Note ---
Date of Service January 24, 2025 Assessment & Plan (1) Ventricular tachycardia: Plan: -Uncertain etiology. -Normal QTc interval on presentation. -Normal left ventricular systolic function on echocardiogram. -Has responded well to intravenous amiodarone. -Would convert amiodarone to 200 Mg p.o. twice daily. -She will need to follow-up with her lap cutter truer operator in [place], [place]. -Stable for hospital discharge. (2) Takotsubo cardiomyopathy: Plan: -Normal ejection fraction on current echocardiogram. (3) ICD (implantable cardioverter-defibrillator), single, in situ: Plan: -[employer] device. Admission and Anticipated Discharge Date Admission Date: January 22, 2025 Subjective The patient is resting comfortably at the bedside without complaints of chest pain, dyspnea, or palpitations. She is anxious for hospital discharge. Her is at the bedside. Physical Exam Physical Exam: In general this is an obese white female in no acute distress. HEENT exam is negative. Neck is supple with full carotid upstrokes. There are no carotid bruits. Jugular venous pressure is flat at 90 degrees. There is no thyromegaly. Cardiovascular exam reveals a regular rhythm with distant heart sounds. No obvious murmurs. Lungs are clear without rales, rhonchi, or wheezes. Chest reveals a palpable device in the left subclavicular region. Abdomen is obese without bruits. Extremities reveal intact radial artery pulses bilaterally. There is no peripheral edema. Results & Data Vital Signs (Past 12 Hours) Vital Signs Temp Pulse Pulse Resp BP Pulse Ox O2 Del Method 01/24/25 07:57 36.6 C 55 L 18 148/90 H 97 Room Air 01/24/25 07:29 77 01/24/25 07:29 Room Air 01/24/25 04:15 36.8 C 54 L 18 122/67 93 Room Air 01/24/25 00:11 36.6 C 31 L 17 164/71 H 94 Room Air Laboratory Results bath tester notes sinus rhythm with frequent PVCs. There was one 8 beat run of nonsustained ventricular tachycardia. PG Care Time/CCT Total # of Minutes Spent Total Time Spent with Patient: Total time spent is greater than 50% in coordination of care (as documented) at patient's floor/unit and/or counseling patient: Coding Level of Care Code 62370 SUB INP/OBS CARE 3/50MIN Diagnoses Ventricular tachycardia I47.20 Takotsubo cardiomyopathy I51.81 ICD (implantable cardioverter-defibrillator), single, in situ Z95.810
== END 2025-01-24 11:34 | disposition home or self-care (01) | DRG 309 ==
LOC: ED 15:57 → SUATTDRO 20:18 → 2E 20:18